=== PATIENT | male | born 1955 | race Caucasian/White ===

== ENCOUNTER 2018-06-21 20:38 | Emergency (ER) | payer OTHER ==
[~2018-06-21 20:38] MED LIST: EZET1TAB86 PO; GABA-549 PO; NEURONTIN; VYTORIN
--- NOTE | 2018-06-21 21:19 | ER Report ---
History and Physical Time Seen By MD: 21:11 Hx. of Stated Complaint: PT WAS PUSHING A LAWN CART, SLEPPED AND FELL. HIT HEAD ON CART. PT BANDAGED HIS HEAD UP. STATES IT TOOK A WHILE TO CONTROL THE BLEEDING. PT IS NOT ON ANY BLOOD THINNERS. HPI/ROS CHIEF COMPLAINT: Scalp laceration HISTORY OF PRESENT ILLNESS: This is a 62 year old male. He tripped and clipped his head on a garden cart. No LOC. He has no complaint of neck pain. Normal vision. Tried to control bleeding at home, but was unable so came in for that reasons. His last tetanus shot was about 3 years ago. Allergies: Uncoded Allergies: CT DYE (Allergy, Intermediate, HIVES, SOB, 06/20/08) AVOIDS PENICILLIN (Allergy, Unknown, 06/20/08) RYE BREAD (Allergy, Unknown, 06/20/08) Home Meds Active Scripts Cephalexin Monohydrate (CEPHALEXIN) 500 Mg Cap, 500 MG PO Q6H, #20 CAP 0 Refills Prov:SHARA ZAFAR MD 06/21/18 Reported Medications Ezetimibe/Simvastatin (VYTORIN 10-40 MG TABLET) 1 Each Tablet, 1 EACH PO QDAY 06/26/15 Gabapentin (GABAPENTIN) 300 Mg Capsule, 300 MG PO TID, CAPSULE 06/26/15 Reviewed Nurses Notes: Yes Hx Smoking: No Smoking Status: Never Smoker Hx Substance Use Disorder: No Hx Alcohol Use: Yes Constitutional Vital Sign - Last 24 Hours 06/21/18 06/21/18 06/21/18 06/21/18 20:40 20:42 20:43 20:55 Temp 99.2 Pulse ??? 94 85 Resp 18 B/P (MAP) 169/74 169/74 (105) Pulse Ox 93 95 O2 Delivery Room Air 06/21/18 06/21/18 06/21/18 06/21/18 21:00 21:10 21:25 21:30 Pulse 85 86 B/P (MAP) 143/73 (96) 145/71 (95) Pulse Ox 94 94 06/21/18 06/21/18 06/21/18 06/21/18 21:40 21:55 22:00 22:10 Pulse 84 94 87 B/P (MAP) 153/73 (99) Pulse Ox 94 95 94 06/21/18 06/21/18 22:18 22:25 Pulse 85 B/P (MAP) 141/80 (100) Pulse Ox 94 Physical Exam General Appearance: Alert, no distress Eyes: Pupils equal and round, no injection. Respiratory: Breathing easily Cardiac: Regular rate and rhythm. Neurological: GCS 15. Alert and oriented x4. No focal deficits. Skin: Large laceration on crown of scalp. Musculoskeletal: Head: No underlying depression or tenderness. Neck: The cervical spine is non-tender and there is no pain with active range of motion. Back: There is no thoracic or lumbar spine or paraspinal tenderness. DIFFERENTIAL DIAGNOSIS: After history and physical exam differential diagnosis was considered for trauma in a fall with scalp laceration Medical Decision Making ED Course/Re-evaluation ED Course Procedure: Laceration Repair Verbal consent from patient after discussing repair options, risks and benefits. Wound cleaned extensively with Hibiclens and saline. Anesthesia: 1% lidocaine with epinephrine and 0.25% bupivacaine with epinephrine. Location: Superior scalp at the crown. Length: Approximately 9 cm total. Character: Flap. There were no deep structures involved. Wound repair: 11 interrupted sutures and 4 ashley. The wound repair was simple and performed by myself. Wound care instructions discussed. Sutures need to be removed in 7 days. Cephalexin 500mg four times a day for 5 days. Decision to Disposition Date: Jun 21, 2018 Decision to Disposition Time: 22:25 Depart Departure Latest Vital Signs Vital Signs Date Time Temp Pulse Resp B/P (MAP) Pulse Ox O2 Delivery O2 Flow Rate FiO2 06/21/18 22:25 85 94 06/21/18 22:18 141/80 (100) 06/21/18 20:42 99.2 18 Room Air Impression: Primary Impression: Laceration of scalp Condition: Improved Disposition: HOME OR SELF-CARE New Scripts Cephalexin Monohydrate (CEPHALEXIN) 500 Mg Cap 500 MG PO Q6H, #20 CAP 0 Refills Prov: SHARA ZAFAR MD 06/21/18 Patient Instructions: Laceration (ED) Additional Instructions: Wound Care: Wash the wound once a day with soap and water. Dry the wound and apply a small amount of antibiotic ointment with a clean dressing. If the dressing becomes wet or dirty, repeat cleaning and dressing as above. No soaking the wound; no swimming. Stitches need to be removed in 7 days. Pain Control: Use Tylenol or ibuprofen for pain. Using and ice pack can help reduce swelling. Antibiotic: Cephalexin 500mg 4 times a day for 5 days. Problem Qualifiers Primary Impression: Laceration of scalp Encounter type: initial encounter Qualified Codes: S01.01XA - Laceration without foreign body of scalp, initial encounter SHARA ZAFAR MD Jun 21, 2018 21:19
[2018-06-21 22:18] VITALS: BP 141/80
[2018-06-21] MEDS ORDERED: CEPHALEXIN 500 MG CAP TH 2 CAP/BOTTLE PO ONE (22:25)
[2018-06-21] MEDS ORDERED: CEPH500C24 PO (22:27)
== END 2018-06-21 22:45 | disposition home or self-care (01) ==
LOC: ER 20:57
DX: S01.01XA Laceration without foreign body of scalp, initial encounter (principal); W01.198A Fall on same level from slipping, tripping and stumbling with subsequent striking against other object, initial encounter
CPT/HCPCS: 99283